=== PATIENT | male | born 1980 | race Two or more races ===

== ENCOUNTER 2025-05-12 05:04 | Emergency (ER) | payer OTHER ==
[~2025-05-12] VITALS: Ht 175.3 cm; Wt 90.7 kg
[2025-05-12] MEDS ORDERED: ACETAMINOPHEN ES 500 MG TABLET ONE (05:34)
[2025-05-12] MEDS ORDERED: IBUPROFEN 600 MG TABLET ONE (05:34)
[2025-05-12] MEDS: ACETAMINOPHEN 325 MG TABLET PO ONE (05:42)
[2025-05-12] MEDS: IBUPROFEN 600 MG TABLET PO ONE (05:42)
[2025-05-12 06:03] VITALS: BP 128/83; TEMP 98; O2SAT 98
== END 2025-05-12 06:04 | disposition home or self-care (01) ==
LOC: ER 05:09 → EDBD 05:09 → ER 06:04
DX: S16.1XXA Strain of muscle, fascia and tendon at neck level, initial encounter (principal); S86.912A Strain of unspecified muscle(s) and tendon(s) at lower leg level, left leg, initial encounter; V43.52XA Car driver injured in collision with other type car in traffic accident, initial encounter; Y93.89 Activity, other specified; Y92.410 Unspecified street and highway as the place of occurrence of the external cause; Y99.9 Unspecified external cause status
CPT/HCPCS: 72040-TC; 73564-TC